=== PATIENT | female | born 1985 | race Caucasian/White ===

== ENCOUNTER 2020-02-06 16:25 | Outpatient (CLI) | payer SELFPAY ==
--- NOTE | 2020-02-06 | MR_ITS ---
WS: [id number] MRI LEFT KNEE HISTORY: LEFT KNEE PAIN COMPARISON: None available. Anterior cruciate ligament: Abnormal signal in the proximal ACL. There is edema throughout the ligame nt and the ligament appears small. Some of the fibers are still intact but suspect there is probably at least a partial tear of the proximal ligament. Posterior cruciate ligament: PCL is been pulled tight. No significant subluxation identified but the ligament is pulled tight but intact. Medial collateral ligament: Mild MCL sprain. No full-thickness tear. Posterior lateral corner structures: Small amount of edema in the posterior lateral corner structures . No tears. Medial menisci: Intact. Normal signal, size and shape. Lateral meniscus: Intact. Normal signal, size and shape. Extensor mechanism: Distal quadriceps tendon is intact. There is high-grade signal throughout the pro ximal patellar tendon extending over length of 2.1 cm. No retraction of the tendon or full-thickness tear. The anterior fibers of the tendon are still intact. Fluid and soft tissue: Large joint effusion surrounding the knee. There is a large amount of soft tis kishan edema around the knee greatest involving the femoral condyles and extending along the distal semi membranosus tendon and muscle and around the proximal fibula. Small amount of fluid in Yen's cyst. Osseous and articular structures: Patellofemoral compartment: Normal. Medial compartment: No significant narrowing of the joint space. Cartilage is intact. There is extens jarod marrow edema in the medial femoral condyle. Marrow edema is in the medial most aspect of the cond yle no definite fracture is identified but I'm suspicious there is probably a trabecular injury and m icrofractures in the posterior aspect of the condyle. There is additional extensive marrow edema grace g the tibial plateau. Marrow edema extends from the tibial plateau towards the metaphysis and crosses the midline. Edema is in the anterior most aspect of the tibial plateau. Microfractures and trabecul ar injury. Lateral compartment: Large amount of marrow edema in the fibular head. There is a nondisplaced fractu re extending obliquely through the posterior lateral fibular head. No displacement. Marrow edema pres ent in the lateral tibial plateau. Increased fluid signal throughout the distal semimembranosus tendon. No full-thickness tear. Increase d signal and fluid without the distal biceps femoris tendon and muscle. MR/MR knee LT wo con* [id number] IMPRESSION: 1. Large joint effusion and a large amount of soft tissue edema surrounding th e knee. 2. Significant marrow injury involving the medial femoral condyle, medial tibi al plateau with extension across the midline to the lateral tibial plateau and the fibular head. Nondisplaced fracture in the fibular head and highly suspicio us for minimally displaced fractures and trabecular injury involving the medial posterior femoral condyle and medial tibial plateau. 3. Patellar tendon proximal partial tear. 4. Partial high-grade tear involving the proximal ACL. 5. Small Yen's cyst. 6. Mild MCL sprain. 7. Mild sprain semimembranosus and partial tear distal biceps femoris tendon.
== END 2020-02-06 16:26 | disposition home or self-care (01) ==
LOC: RADSHAW 16:31
PROVIDERS: Family Provider Family Medicine; PCP Family Medicine; Visit Provider Nurse Practitioner Family
DX: M25.562 Pain in left knee (principal); M25.462 Effusion, left knee; R60.9 Edema, unspecified; S89.92XA Unspecified injury of left lower leg, initial encounter; S83.512A Sprain of anterior cruciate ligament of left knee, initial encounter; X58.XXXA Exposure to other specified factors, initial encounter; M71.22 Synovial cyst of popliteal space [Baker], left knee
CPT/HCPCS: 73721

== ENCOUNTER → 2020-08-25 14:36 | Outpatient (BNVA) | payer OTHER, SELFPAY | PROVIDERS: Family Provider Family Medicine; PCP Family Medicine; Visit Provider Emergency Medicine | DX: Z20.828 Contact with and (suspected) exposure to other viral communicable diseases (principal) | CPT/HCPCS: 87400; 87635 ==

== ENCOUNTER → 2020-10-10 13:55 | Outpatient (BNVA) | payer OTHER, SELFPAY | PROVIDERS: Family Provider Family Medicine; PCP Family Medicine; Visit Provider Nurse Practitioner Family | DX: Z20.828 Contact with and (suspected) exposure to other viral communicable diseases (principal) | CPT/HCPCS: 87635 ==

== ENCOUNTER → 2021-02-21 11:42 | Outpatient (BNVA) | payer SELFPAY | PROVIDERS: Family Provider Family Medicine; PCP Family Medicine; Visit Provider Nurse Practitioner | DX: S93.401A Sprain of unspecified ligament of right ankle, initial encounter (principal); X58.XXXA Exposure to other specified factors, initial encounter; Z68.28 Body mass index [BMI] 28.0-28.9, adult | CPT/HCPCS: 73610 ==

== ENCOUNTER → 2021-04-26 18:03 | Outpatient (BNVA) | payer OTHER, SELFPAY | PROVIDERS: Family Provider Family Medicine; PCP Family Medicine; Visit Provider Registered Nurse Neonatal Intensive Care | DX: Z20.822 Contact with and (suspected) exposure to COVID-19 (principal) | CPT/HCPCS: 87635 ==

== ENCOUNTER → 2021-08-30 10:50 | Outpatient (BNVA) | payer OTHER, SELFPAY | PROVIDERS: Family Provider Family Medicine; PCP Family Medicine; Visit Provider Registered Nurse Neonatal Intensive Care | DX: Z20.822 Contact with and (suspected) exposure to COVID-19 (principal) | CPT/HCPCS: 87635 ==

== ENCOUNTER → 2023-02-13 13:45 | Outpatient (BNVA) | payer SELFPAY | PROVIDERS: Family Provider Family Medicine; Visit Provider Nurse Practitioner Family | DX: M79.89 Other specified soft tissue disorders (principal) | CPT/HCPCS: 73590 ==

== ENCOUNTER → 2023-06-03 10:59 | Outpatient (BNVA) | payer SELFPAY | PROVIDERS: Family Provider Family Medicine; Visit Provider Nurse Practitioner | DX: N92.6 Irregular menstruation, unspecified (principal); Z32.01 Encounter for pregnancy test, result positive | CPT/HCPCS: 81025 ==

== ENCOUNTER 2023-06-10 10:07 | Emergency (ER) | payer MEDICAID, SELFPAY ==
[2023-06-10 10:17] VITALS: BP 120/74; PULSE 92; RESP 15; TEMP 37.2; O2SAT 98
--- NOTE | 2023-06-10 10:43 | W.ED.FEMALGU ---
HPI - Female Genitourinary General: Chief complaint: Vaginal Bleeding Stated complaint: 6-7 weeks preg lower right side pain Time Seen by Provider: 06/10/23 10:37 Source: patient Mode of arrival: ambulatory Limitations: no limitations History of Present Illness: Patient is a 38-year-old female presents to ED today stating she is approximately 6 to 7 weeks and is having some minor vaginal bleeding and pelvic cramping mainly on the right side. Patient states she had a home test about a week ago and was seen at a walk-in clinic on 06/03 where was confirmed. She has never had an ultrasound. LMP was approximately April 26 placing her at exactly 7 weeks. She states she is not passing clots or tissue. Bleeding mainly seen while wiping. She denies new sexual partners, vaginal discharge, vaginal odor, or concern for STDs. MD elicited complaint: pelvic pain, possible miscarriage and other () Onset (ago): day(s) (bleeding yesterday; reports cramping has been present intermittently for weeks) Severity: mild Consistency: intermittent Vaginal discharge: none Vaginal bleeding: scant and bright red Exacerbating factors: none Relieving factors: none Associated symptoms: Reports no associated symptoms; Deny abdominal pain, headache(s), nausea or vaginal discharge Treatment prior to arrival: none Sexual activity: Yes Patient : Yes Date of Last Menstrual Period: 04/26/23 Related Data: : 3 Para: 2 Total number of abortions (spontaneous and elective): 0 Review of Systems Const: Denies: fever(s), chills, body aches, fatigue or malaise Card: Denies: chest pain Resp: Denies: dyspnea GI: Denies: abdominal pain, nausea, vomiting or diarrhea : Reports: vaginal bleeding and pelvic pain; Denies: flank pain, difficulty voiding, dysuria, urinary frequency, urinary urgency, urinary hesitancy, vaginal odor or vaginal discharge Musc: Denies: neck pain, back pain, extremity pain or joint pain Skin/Breast: Denies: rash Neuro: Denies: headache(s) or dizziness PFSH ED PFSH: Medical History Premenstrual dysphoric disorder Premenstrual symptom Psychiatric care Surgical History H/O wisdom tooth extraction Family History Grandfather CAD (coronary artery disease) Paternal Hypertension Paternal Grandfather Hypertension Maternal Grandmother Hypertension Paternal Father Hypertension Hyperlipidemia Stroke Diabetes Family/Other Hyperlipidemia Paternal aunt Mother Family history of thyroid problem Social History Smoking and tobacco status: current every day smoker e-cigarettes E-Cigarette Details: vaporizer device and with nicotine E-cig/vape details: cartridge/week Quit status (tobacco): has tried quititng Number of times tried to quit tobacco: 6 Second hand smoke exposure: No Smoking risk assessment/counseling performed?: No Alcohol intake: current Alcohol intake frequency: holidays/special occasions only Alcohol type: other Desire information about alcohol rehabilitation?: No Counseling given: Yes Other alcohol counseling details: Alcohol & medications don't mix. Substance/Drug Use: current Substance/Drug use frequency: few times a week Desire information about substance/drug rehabilitation?: No Counseling given: No Female Reproductive History: Date of last menstrual period: 04/26/23 : 3 Spontaneous abortions: No Physical Exam Const: COMMON NORMALS: no acute distress, average body habitus, patient oriented x3, no limitations, alert and well nourished ORIENTATION/CONSCIOUSNESS: Yes awake, Yes oriented to person, Yes oriented to place and Yes oriented to time Resp: COMMON NORMALS: normal respiratory effort and clear to auscultation bilaterally AUSCULTATION: clear to auscultation bilaterally Cardio: COMMON NORMALS: regular rate and regular rhythm RATE: regular rate RHYTHM: regular rhythm GI: COMMON NORMALS: Normal to inspection, nondistended, normoactive bowel sounds present, Soft to palpation, No hepatosplenomegaly present and no masses INSPECTION: Yes normal to inspection AUSCULTATION: Yes normoactive bowel sounds PALPATION: Yes Soft to palpation, Yes Tenderness to palpation present (GI) (mild tenderness R to middle pelvis), No Guarding due to palpation present (GI), No Rigid due to palpation and Yes No hepatosplenomegaly present : COMMON NORMALS: Yes no CVA tenderness BLADDER/KIDNEY EXAM: Yes no CVA tenderness Back/Pelvis: COMMON NORMALS: no CVA tenderness Extremity: COMMON NORMALS: normal to inspection GENERAL: Yes normal exam except as noted Neuro: PHOEBE COMA SCALE: document GCS findings [place] coma scale eye opening: Spontaneous Phoebe coma scale verbal response: Orientated [place] coma scale motor response: Obey commands [place] coma scale total score: 15 COMMON NORMALS: patient oriented x3, CN's II-XII intact bilaterally, moves all extremities, no focal motor deficits, no sensory deficits noted and gait normal SENSORIUM/ORIENTATION: Yes alert, Yes oriented to person, Yes oriented to place and Yes oriented to time Skin: COMMON NORMALS: no rashes or lesions noted GENERAL SKIN EXAM: no rashes or lesions noted Course Vital Signs: Vital signs: Vital Signs Temperature 99.0 F 06/10/23 10:17 Pulse Rate 99 06/10/23 12:20 Respiratory Rate 15 06/10/23 10:17 Blood Pressure 123/78 06/10/23 11:21 Pulse Oximetry 96 06/10/23 12:20 Oxygen Delivery Me thod Room Air 06/10/23 12:20 MDM - Female Medical Decision Making On ultrasound patient does have an intrauterine with gestational sac, pole, and yolk sac. Cardiac activity most likely secondary to early as they dated her at [id number]. Hemorrhagic right ovarian cyst present most likely causing her discomfort. Discussed ultrasound findings and cannot guarantee viability of fetus this time without heartbeat. Recommend she contact her OB provider Dr. Parra (currently has an appointment scheduled for 06/25) to see if/when they would like to repeat hcg and/or ultrasound. Strict return to ED precautions given. Lab Data 06/10/23 11:04 06/10/23 11:04 Laboratory Results WBC 8.90 10^3/uL (3.29-11.43) 06/10/23 11:04 RBC 4.06 10^6/uL (3.85-5.65) 06/10/23 11:04 Hgb 13.70 g/dL (11.27-16.99) 06/10/23 11:04 Hct 41.1 % (36-47) 06/10/23 11:04 MCV 101.2 fl (85-98) H 06/10/23 11:04 MCH 33.7 pg (27-33) H 06/10/23 11:04 MCHC 33.3 g/dL (30-55) 06/10/23 11:04 RDW 13.9 % (12.1-15.1) 06/10/23 11:04 Plt Count 333 10^3/cmm (157-399) 06/10/23 11:04 MPV 9.2 fL (7.4-10.4) 06/10/23 11:04 Neut % (Auto) 67.9 % 06/10/23 11:04 Lymph % (Auto) 22.8 % 06/10/23 11:04 [place] % (Auto) 7.3 % 06/10/23 11:04 Eos % (Auto) 1.0 % 06/10/23 11:04 Baso % (Auto) 0.7 % 06/10/23 11:04 Neut # (Auto) 6.04 10^3/uL (1.8-7.7) 06/10/23 11:04 Lymph # (Auto) 2.0 10^3/uL (0.8-4.8) 06/10/23 11:04 [place] # (Auto) 0.7 10^3/uL (0.2-0.9) 06/10/23 11:04 Eos # (Auto) 0.1 10^3/uL (0.0-0.8) 06/10/23 11:04 Baso # (Auto) 0.1 10^3/uL (0.0-0.1) 06/10/23 11:04 Nucleated RBC % (auto) 0 % 06/10/23 11:04 Nucleated RBCs # 0.0 /100WBC 06/10/23 11:04 Sodium 137 mmol/L (136-145) 06/10/23 11:04 Potassium 3.6 mmol/L (3.5-5.1) 06/10/23 11:04 Chloride 103 mmol/L (98-107) 06/10/23 11:04 Carbon Dioxide 22 mmol/L (22-29) 06/10/23 11:04 Anion Gap 15.6 (5-19) 06/10/23 11:04 BUN 11 mg/dL (6-20) 06/10/23 11:04 Creatinine 0.7 mg/dL (0.5-0.9) 06/10/23 11:04 GFR Calculation 93.6 mL/min (90-130) 06/10/23 11:04 Glucose 100 mg/dL (65-115) 06/10/23 11:04 Calculated Osmolality 283 mOsm/kg (285-295) L 06/10/23 11:04 Calcium 9.4 mg/dL (8.5-10.5) 06/10/23 11:04 Total Bilirubin 0.2 mg/dL (0.15-1.2) 06/10/23 11:04 AST 15 U/L (0-32) 06/10/23 11:04 ALT 12 U/L (0-33) 06/10/23 11:04 Alkaline Phosphatase 48 U/L (35-105) 06/10/23 11:04 Total Protein 7.0 g/dL (6.6-8.7) 06/10/23 11:04 Albumin 4.5 g/dL (3.5-5.2) 06/10/23 11:04 Globulin 2.5 g/dL (1.3-4.6) 06/10/23 11:04 Ser , Semi-Qnt 5162.00 mIU/mL 06/10/23 11:04 Discharge Plan Discharge Patient Disposition: Home Clinical Impression: Spotting in early Condition: Stable Prescriptions: No Action No Known Home Medications Discharge Orders: Discharge ED (Routine); Ordered 06/10/23 Ordered By: Sri Cadet Referrals: Jun Cheng DO [Family Provider] - Patient Instructions: Activity Restrictions/Additional Instructions: As we discussed your hCG level today is roughly 5100 corresponds to your last menstrual period dates. Ultrasound today showing an intrauterine gestational sac with pole and yolk sac however cardiac activity could not be assessed most likely due to very early . They did see a hemorrhagic right ovarian cyst likely responsible for your discomfort. As we discussed you need to reach out to your OB provider Dr. Parra or [facility] office for re-evaluation to see if/when they would like to repeat hcg or ultrasound. You need to return to the emergency department for worsening pelvic pain, bleeding, headedness/dizziness/passing out episodes, or any other concerns you may have. Coding Level of Care Code ED Geotechnical Department Manager for Bere Baldwin
[2023-06-10 11:16] LABS: Basophils # 0.1 10^3/uL (0.0-0.1); Basophils % 0.7 %; Eosinophils # 0.1 10^3/uL (0.0-0.8); Hematocrit 41.1 % (36-47); Lymphocytes % 22.8 %; Mean Corpuscular HGB Conc 33.3 g/dL (30-55); Mean Corpuscular Hemoglobin 33.7 pg (27-33); Mean Corpuscular Volume 101.2 fl (85-98); Mean Platelet Volume 9.2 fL (7.4-10.4); Monocytes # 0.7 10^3/uL (0.2-0.9); Monocytes % 7.3 %; Neutrophils # 6.04 10^3/uL (1.8-7.7); Neutrophils % 67.9 %; Nucleated Red Blood Cells % 0 %; Platelet Count 333 10^3/cmm (157-399); Red Blood Count 4.06 10^6/uL (3.85-5.65); Red Cell Distribution Width 13.9 % (12.1-15.1)
[2023-06-10 11:21] VITALS: BP 123/78; PULSE 81; O2SAT 98
--- NOTE | 2023-06-10 11:51 | US_ITS ---
WS: [id number] ULTRASOUND EARLY TECHNIQUE: Transabdominal sonography of the pelvis was performed. Followed by transvaginal sonography to better evaluate the uterus and ovaries. G5, P2 CLINICAL INFORMATION: 7 wks ; R sided pain LMP: 03/29/2023 Beta hCG: Unknown. COMPARISON: None. FINDINGS: Closed cervix measures 3.1 cm UTERUS AND GESTATIONAL SAC Intrauterine gestations: Intrauterine gestational sac with pole and yolk sac. Estimated gestati onal age 5 weeks 5 days. Too early for cardiac activity assessment. Recommend short interval follow-u p. Estimated gestational age: 5w5d Yolk sac: 0.2 cm. [place] rump length (CRL): 0.2 cm. Subchorionic hemorrhage: None. OVARIES Right ovary: Corpus luteum cyst or hemorrhagic cyst RIGHT ovary measuring 9.1 x 7.3 x 11 mm Left ovary: Normal. FREE FLUID Trace free fluid in the cul-de-sac. IMPRESSION: 1. Gestational sac with pole and yolk sac. Cardiac activity cannot be assessed due to very ear ly . Recommend short interval follow-up. 2. Estimated gestational age; 5w5d 3. Right ovary: Corpus luteum cyst or hemorrhagic cyst RIGHT ovary measuring 9.1 x 7.3 x 11 mm 4. Small amount of free fluid in the cul-de-sac. 5. No other suspicious findings.
[2023-06-10 11:53] LABS: Alanine Aminotransferase 12 U/L (0-33); Albumin Level 4.5 g/dL (3.5-5.2); Alkaline Phosphatase 48 U/L (35-105); Anion Gap 15.6 (5-19); Aspartate Amino Transferase 15 U/L (0-32); Blood Urea Nitrogen 11 mg/dL (6-20); Calcium 9.4 mg/dL (8.5-10.5); Carbon Dioxide 22 mmol/L (22-29); Chloride 103 mmol/L (98-107); Globulin 2.5 g/dL (1.3-4.6); Glomerular Filtration Rate 93.6 mL/min (90-130); Glucose 100 mg/dL (65-115); Osmolality Calculated 283 mOsm/kg (285-295); Potassium 3.6 mmol/L (3.5-5.1); Sodium 137 mmol/L (136-145); Total Bilirubin 0.2 mg/dL (0.15-1.2)
[2023-06-10 12:20] VITALS: PULSE 99; O2SAT 96
[2023-06-10 14:26] VITALS: BP 123/81; PULSE 72; O2SAT 99
== END 2023-06-10 14:30 | disposition home or self-care (01) ==
PROVIDERS: Emergency Provider Physician Assistant; Family Provider Family Medicine
DX: O26.851 Spotting complicating pregnancy, first trimester (principal); Z3A.01 Less than 8 weeks gestation of pregnancy; O99.331 Smoking (tobacco) complicating pregnancy, first trimester; F17.290 Nicotine dependence, other tobacco product, uncomplicated
CPT/HCPCS: 36415; 76801; 76817; 80053; 84702; 85025; 99284

== ENCOUNTER 2024-07-20 13:06 | Emergency (ER) | payer MEDICAID, SELFPAY ==
--- NOTE | 2024-07-20 13:09 | ECG_ITS ---
[facility] Test Date: 2024-07-20 Pat Name: Raissa Vale Department: Room: Gender: Female Database Designer: : 1985 Requested By: Conner Abbasi Order Number: [id number] Razia MD: Johanna Marsh M.D. Measurements Intervals [place] Rate: 80 P: 60 ID: [id number] QRS: 55 QRSD: 84 T: 62 QT: 362 QTc: 418 Interpretive Statements SINUS RHYTHM WITH SHORT ID INTERVAL Compared to ECG 04/02/2016 09:43:32 Short ID interval now present Sinus arrhythmia no longer present Electronically Signed On 07-20-2024 16:42:59 CDT by Johanna Marsh M.D. [email or web address]
--- NOTE | 2024-07-20 13:09 | XRR_ITS ---
PROCEDURE INFORMATION: Exam: XR Chest Exam date and time: 07/20/2024 1:51 PM Age: 39 years old Clinical indication: Pain; Angina pectoris; Additional info: Cp TECHNIQUE: Imaging protocol: Radiologic exam of the chest. Views: 1 view. COMPARISON: No relevant prior studies available. FINDINGS: Lungs: No consolidation. Pleural spaces: No pleural effusion. No pneumothorax. Heart/Mediastinum: No cardiomegaly. Bones/joints: No acute findings. XR/XR chest 1V portable [id number] IMPRESSION: No acute chest findings.
[2024-07-20 13:13] VITALS: BP 160/99; PULSE 89; RESP 16; TEMP 36.9; O2SAT 100; BMI 25.8
[2024-07-20 13:54] LABS: Basophils % 0.4 %; Eosinophils # 0.1 10^3/uL (0.0-0.8); Eosinophils % 0.8 %; Hematocrit 40.9 % (36-47); Lymphocytes # 2.8 10^3/uL (0.8-4.8); Mean Corpuscular HGB Conc 33.7 g/dL (30-55); Mean Corpuscular Hemoglobin 33.8 pg (27-33); Mean Corpuscular Volume 100.2 fl (85-98); Mean Platelet Volume 9.3 fL (7.4-10.4); Monocytes # 0.8 10^3/uL (0.2-0.9); Monocytes % 7.8 %; Neutrophils # 6.22 10^3/uL (1.8-7.7); Neutrophils % 62.7 %; Nucleated Red Blood Cells % 0 %; Platelet Count 305 10^3/cmm (157-399); Red Blood Count 4.08 10^6/uL (3.85-5.65); Red Cell Distribution Width 13.5 % (12.1-15.1); White Blood Count 9.92 10^3/uL (3.29-11.43)
[2024-07-20 13:59] VITALS: BP 149/73; PULSE 82; RESP 16; O2SAT 100
[2024-07-20 14:14] LABS: Alanine Aminotransferase 17 U/L (0-33); Albumin Level 4.7 g/dL (3.5-5.2); Alkaline Phosphatase 46 U/L (35-105); Anion Gap 17.2 (5-19); Aspartate Amino Transferase 23 U/L (0-32); Blood Urea Nitrogen 10 mg/dL (6-20); Calcium 8.9 mg/dL (8.5-10.5); Carbon Dioxide 22 mmol/L (22-29); Chloride 103 mmol/L (98-107); Creatinine Clr Calc Pharmacy 110.0549; Globulin 2.1 g/dL (1.3-4.6); Glomerular Filtration Rate 93.2 mL/min (90-130); Glucose 94 mg/dL (65-115); Lipase 20 U/L (13-60); Osmolality Calculated 285 mOsm/kg (285-295); Potassium 4.2 mmol/L (3.5-5.1); Sodium 138 mmol/L (136-145); Total Bilirubin 0.4 mg/dL (0.15-1.2); Total Protein 6.8 g/dL (6.6-8.7)
--- NOTE | 2024-07-20 14:15 | ED_ITS ---
HPI - Chest Pain 2 General: Chief Complaint: Chest Pain Stated Complaint: CP/Irregular HB Time Seen by Provider: 07/20/24 13:44 Source: patient Mode of arrival: ambulatory Limitations: no limitations History of Present Illness: 39-year-old female states over the last week she has been having some palpitations states she feels like her hearts been racing at times and also having chest pain states it has been a sharp pain she denies any fevers denies any cough denies any shortness of breath she denies any worsening improving factors. Associated symptoms: Reports palpitations; Deny abdominal pain, dyspnea, fever(s), nausea or vomiting Related Data Home Medications Medication Instructions Recorded Confirmed No Known Home Medications 06/10/23 07/20/24 Allergies Allergy/AdvReac Type Severity Reaction Status Date / Time No Known Allergies Allergy Verified 06/10/23 10:20 Review of Systems 2 Const: Denies: fever(s), chills, body aches or change in appetite ENMT: Denies: throat pain or dental pain Card: Reports: chest pain and palpitations Resp: Denies: dyspnea GI: Denies: abdominal pain, nausea, vomiting or diarrhea : Denies: dysuria Musc: Denies: neck pain or back pain Skin/Breast: Denies: rash Neuro: Denies: headache(s) PFSH ED 2 PFSH: Medical History Psychiatric care Premenstrual dysphoric disorder Premenstrual symptom Surgical History H/O wisdom tooth extraction Family History Grandfather CAD (coronary artery disease) Paternal Hypertension Paternal Grandfather Hypertension Maternal Grandmother Hypertension Paternal Father Hypertension Hyperlipidemia Stroke Diabetes Family/Other Hyperlipidemia Paternal aunt Mother Family history of thyroid problem Social History Smoking and tobacco/nicotine status: current every day tobacco/nicotine user e- cigarettes E-Cigarette Details: vaporizer device and with nicotine E-cig/vape details: cartridge/week Quit status (tobacco/nicotine): has tried quititng Number of times tried to quit tobacco: 6 Second hand smoke exposure: No Alcohol intake: current Alcohol intake frequency: holidays/special occasions only Alcohol type: other Substance/Drug Use: current Substance/Drug use frequency: few times a week Female Reproductive History: Spontaneous abortions: No Physical Exam 2 Const: COMMON NORMALS: no acute distress, patient oriented x3 and healthy appearing HENMT: COMMON NORMALS: normocephalic and atraumatic HEAD & SCALP: n ormocephalic and atraumatic Neck/C-Spine: COMMON NORMALS: full ROM and supple Chest: COMMONS NORMALS: normal inspection of the chest Resp: COMMON NORMALS: normal respiratory effort, No retractions, No use of accessory muscles and clear to auscultation bilaterally AUSCULTATION: clear to auscultation bilaterally Cardio: COMMON NORMALS: regular rate, regular rhythm and No murmurs present (Cardio) RATE: regular rate RHYTHM: regular rhythm Extremity: COMMON NORMALS: normal to inspection and full ROM Neuro: COMMON NORMALS: patient oriented x3, moves all extremities and no focal motor deficits Psych: COMMON NORMALS: mental status grossly normal, Normal thought process present and cooperative THOUGHT PROCESS: Normal thought process present Skin: COMMON NORMALS: no rashes or lesions noted and no wounds GENERAL SKIN EXAM: no rashes or lesions noted Course 2 Vital Signs: Vital signs: Vital Signs Temperature 98.4 F 07/20/24 13:13 Pulse Rate 82 07/20/24 13:59 Respiratory Rate 16 07/20/24 13:59 Blood Pressure 149/73 07/20/24 13:59 Pulse Oximetry 100 07/20/24 13:59 Oxygen Delivery Me thod Room Air 07/20/24 13:59 MDM - Chest Pain Medical Decision Making Patient presents here with palpitations and chest pains that are atypical in nature EKG x-ray cardiac enzymes here are all normal patient stable for discharge follow-up PCP return if worsening. Medical Records I reviewed the patient's medical records. Lab Data I reviewed the patient's lab results. 07/20/24 13:39 07/20/24 13:39 Radiology Impressions Chest X-Ray 07/20/24 13:09 IMPRESSION: No acute chest findings. Laboratory Results WBC 9.92 10^3/uL (3.29-11.43) 07/20/24 13:39 RBC 4.08 10^6/uL (3.85-5.65) 07/20/24 13:39 Hgb 13.80 g/dL (11.27-16.99) 07/20/24 13:39 Hct 40.9 % (36-47) 07/20/24 13:39 MCV 100.2 fl (85-98) H 07/20/24 13:39 MCH 33.8 pg (27-33) H 07/20/24 13:39 MCHC 33.7 g/dL (30-55) 07/20/24 13:39 RDW 13.5 % (12.1-15.1) 07/20/24 13:39 Plt Count 305 10^3/cmm (157-399) 07/20/24 13:39 MPV 9.3 fL (7.4-10.4) 07/20/24 13:39 Neut % (Auto) 62.7 % 07/20/24 13:39 Lymph % (Auto) 28.0 % 07/20/24 13:39 [place] % (Auto) 7.8 % 07/20/24 13:39 Eos % (Auto) 0.8 % 07/20/24 13:39 Baso % (Auto) 0.4 % 07/20/24 13:39 Neut # (Auto) 6.22 10^3/uL (1.8-7.7) 07/20/24 13:39 Lymph # (Auto) 2.8 10^3/uL (0.8-4.8) 07/20/24 13:39 [place] # (Auto) 0.8 10^3/uL (0.2-0.9) 07/20/24 13:39 Eos # (Auto) 0.1 10^3/uL (0.0-0.8) 07/20/24 13:39 Baso # (Auto) 0.0 10^3/uL (0.0-0.1) 07/20/24 13:39 Nucleated RBC % (auto) 0 % 07/20/24 13:39 Nucleated RBCs # 0.0 /100WBC 07/20/24 13:39 D-Dimer 0.31 ug/mLFEU (0-0.59) 07/20/24 13:39 Sodium 138 mmol/L (136-145) 07/20/24 13:39 Potassium 4.2 mmol/L (3.5-5.1) 07/20/24 13:39 Chloride 103 mmol/L (98-107) 07/20/24 13:39 Carbon Dioxide 22 mmol/L (22-29) 07/20/24 13:39 Anion Gap 17.2 (5-19) 07/20/24 13:39 BUN 10 mg/dL (6-20) 07/20/24 13:39 Creatinine 0.7 mg/dL (0.5-0.9) 07/20/24 13:39 GFR Calculation 93.2 mL/min (90-130) 07/20/24 13:39 Glucose 94 mg/dL (65-115) 07/20/24 13:39 Calculated Osmolality 285 mOsm/kg (285-295) 07/20/24 13:39 Calcium 8.9 mg/dL (8.5-10.5) 07/20/24 13:39 Total Bilirubin 0.4 mg/dL (0.15-1.2) 07/20/24 13:39 AST 23 U/L (0-32) 07/20/24 13:39 ALT 17 U/L (0-33) 07/20/24 13:39 Alkaline Phosphatase 46 U/L (35-105) 07/20/24 13:39 Troponin T Baseline < 6 ng/L (0-10) 07/20/24 13:39 Total Protein 6.8 g/dL (6.6-8.7) 07/20/24 13:39 Albumin 4.7 g/dL (3.5-5.2) 07/20/24 13:39 Globulin 2.1 g/dL (1.3-4.6) 07/20/24 13:39 Lipase 20 U/L (13-60) 07/20/24 13:39 All radiology interpretation(s) finalized by discharge Discharge Plan Discharge Patient Disposition: Home Clinical Impression: Atypical chest pain, Heart palpitations Condition: Stable Prescriptions: No Action No Known Home Medications Discharge Orders: Discharge ED (Routine); Ordered 07/20/24 Ordered By: Conner Abbasi Discharge Diet: Advance as tolerated Discharge Activity: Resume usual activity Patient Instructions: Chest Pain (ED), Heart Palpitations (ED) Coding Level of Care Code ED Upstream Biomanufacturing Technician for Chg Nicolasa
[2024-07-20 14:19] LABS: Troponin(5th) Baseline < 6 ng/L (0-10)
[2024-07-20 14:34] LABS: D Dimer 0.31 ug/mLFEU (0-0.59)
[2024-07-20 15:06] VITALS: BP 113/96; PULSE 78; RESP 16; O2SAT 100
== END 2024-07-20 15:05 | disposition home or self-care (01) ==
PROVIDERS: Emergency Provider Emergency Medicine
DX: R07.89 Other chest pain (principal); R00.2 Palpitations; F17.290 Nicotine dependence, other tobacco product, uncomplicated
CPT/HCPCS: 36415; 71045; 80053; 83690; 84484; 85025; 85378; 93005; 99285

== ENCOUNTER 2024-09-13 09:37 | Emergency (ER) | payer SELFPAY ==
[2024-09-13 09:54] VITALS: BP 152/95; PULSE 83; RESP 18; TEMP 36.7; O2SAT 100; BMI 27.4
--- NOTE | 2024-09-13 09:55 | ECG_ITS ---
[facility] Date: 2024-09-13 Pat Name: Raissa Vale Department: Room: Gender: Female Diabetes Clinical Manager: : 1985 Requested By: Papo Chamberlain Order Number: [id number] Razia MD: Johanna Marsh M.D. Measurements Intervals [place] Rate: 73 P: 58 ID: [id number] QRS: 54 QRSD: 86 T: 47 QT: 377 QTc: 416 Interpretive Statements SINUS RHYTHM WITH SHORT ID INTERVAL Compared to ECG 07/20/2024 13:09:00 No significant changes Electronically Signed On 09-14-2024 01:00:10 AIR MOVING TECHNICIAN by Johanna Marsh M.D. [id number]
[2024-09-13 11:20] LABS: Basophils % 0.3 %; Eosinophils # 0.1 10^3/uL (0.0-0.8); Eosinophils % 0.7 %; Hematocrit 39.1 % (36-47); Lymphocytes # 2.5 10^3/uL (0.8-4.8); Lymphocytes % 21.3 %; Mean Corpuscular HGB Conc 33.5 g/dL (30-55); Mean Corpuscular Hemoglobin 33.2 pg (27-33); Mean Corpuscular Volume 99.2 fl (85-98); Mean Platelet Volume 9.1 fL (7.4-10.4); Monocytes # 0.8 10^3/uL (0.2-0.9); Monocytes % 6.7 %; Neutrophils # 8.12 10^3/uL (1.8-7.7); Neutrophils % 70.4 %; Nucleated Red Blood Cells % 0 %; Platelet Count 354 10^3/cmm (157-399); Red Blood Count 3.94 10^6/uL (3.85-5.65); Red Cell Distribution Width 13.2 % (12.1-15.1); White Blood Count 11.53 10^3/uL (3.29-11.43)
[2024-09-13 11:41] LABS: Alanine Aminotransferase 10 U/L (0-33); Albumin Level 4.4 g/dL (3.5-5.2); Alkaline Phosphatase 59 U/L (35-105); Aspartate Amino Transferase 15 U/L (0-32); Blood Urea Nitrogen 7 mg/dL (6-20); Calcium 9.6 mg/dL (8.5-10.5); Carbon Dioxide 24 mmol/L (22-29); Chloride 99 mmol/L (98-107); Creatinine Clr Calc Pharmacy 198.0047; Globulin 2.9 g/dL (1.3-4.6); Glomerular Filtration Rate 177.7 mL/min (90-130); Glucose 87 mg/dL (65-115); Osmolality Calculated 275 mOsm/kg (285-295); Sodium 134 mmol/L (136-145); Total Bilirubin 0.3 mg/dL (0.15-1.2); Total Protein 7.3 g/dL (6.6-8.7)
[2024-09-13 12:11] VITALS: BP 120/80; PULSE 90; RESP 18; O2SAT 100
--- NOTE | 2024-09-13 12:12 | ED_ITS ---
HPI - Dizziness 2 General: Chief Complaint: Syncope Stated Complaint: passed out (11wks preg) Time Seen by Provider: 09/13/24 09:57 Source: patient Mode of arrival: ambulatory Limitations: no limitations History of Present Illness: HPI Narrative: Patient is a 39-year-old female presents to ED today with a complaint of dizziness/lightheadedness. She states symptoms have been going on for about a week or so. She states she has been having intermittent palpitations for several months. She states she is scheduled to have a heart monitor next week. She does not feel like the palpitations correspond to the dizziness. Patient states when she awakes in the morning she does not have dizziness/lightheadedness but will start noticing symptoms around noon. She does not feel like dizziness is stimulated by abrupt changes in position. She denies drug or alcohol use apart from marijuana use-continuing to use during . She does state she took a klonopin the other day for her heart palpitations. Despite her dizziness, she has continued to ambulate without difficulty or assistance. She is not having any ear pain, tinnitus, or hearing loss. No recent URI-like symptoms. She states she is drinking adequate amounts of fluid. She is taking vitamins as she is currently . States she is around 12 weeks . has been confirmed with OB and she is currently seen OB in [place]. She is not having any vaginal bleeding or pelvic pain. MD elicited complaint: dizziness Onset (ago): week(s) Timing: episodic Severity: mild History of similar symptoms: No Associated symptoms: Reports no associated symptoms, palpitations and syncope; Denies chest pain, chills, headache(s), nausea or vomiting Associated neuro symptoms: Reports no associated symptoms; Deny numbness in extremities Stroke scale total: 0 Related Data Home Medications Medication Instructions Recorded Confirmed vits no.130-ferrous fum 1 tab PO DAILY 09/12/24 09/13/24 27 mg iron-folic acid 800 mcg tablet ( Vitamin) ferrous sulfate 325 mg (65 mg 325 mg PO DAILY 09/13/24 09/13/24 iron) tablet Allergies Allergy/AdvReac Type Severity Reaction Status Date / Time No Known Allergies Allergy Verified 09/12/24 18:04 Review of Systems 2 Const: Reports: fatigue; Denies: fever(s), chills or body aches Eyes: Denies: change in vision, blurry vision, photophobia, eye discomfort, eye discharge, floaters or seeing flashes Card: Reports: palpitations and syncope; Denies: chest pain, irregular heart rhythm, edema, swelling of feet/ankles, pre- syncope, dyspnea on exertion, orthopnea, leg pain with exertion or acrocyanosis Resp: Denies: dyspnea GI: Denies: abdominal pain, nausea, vomiting or diarrhea : Denies: flank pain or dysuria Musc: Denies: neck pain, back pain, extremity pain, joint pain or joint swelling Skin/Breast: Denies: rash Neuro: Reports: dizziness; Denies: headache(s), numbness in extremities, weakness in extremities or sensory changes PFSH ED 2 PFSH: Medical History Psychiatric care Premenstrual dysphoric disorder Premenstrual symptom Surgical History H/O wisdom tooth extraction Family History Grandfather CAD (coronary artery disease) Paternal Hypertension Paternal Grandfather Hypertension Maternal Grandmother Hypertension Paternal Father Hypertension Hyperlipidemia Stroke Diabetes Family/Other Hyperlipidemia Paternal aunt Mother Family history of thyroid problem Social History Smoking and tobacco/nicotine status: current every day tobacco/nicotine user e- cigarettes E-Cigarette Details: vaporizer device and with nicotine E-cig/vape details: cartridge/week Quit status (tobacco/nicotine): has tried quititng Number of times tried to quit tobacco: 6 Second hand smoke exposure: No Alcohol intake: current Alcohol intake frequency: holidays/special occasions only Alcohol type: other Substance/Drug Use: current Substance/Drug use frequency: few times a week Female Reproductive History: Spontaneous abortions: No Physical Exam 2 Const: COMMON NORMALS: no acute distress, average body habitus, patient oriented x3, no limitations, healthy appearing, alert and well nourished G ENERAL APPEARANCE: cooperative ORIENTATION/CONSCIOUSNESS: Yes awake, Yes oriented to person, Yes oriented to place and Yes oriented to time HENMT: COMMON NORMALS: external ears normal, EAC's normal and TM's normal bilaterally EXTERNAL EAR: Yes external ears normal, Yes mastoids normal and Yes no periauricular adenopathy EXTERNAL AUDITORY CANAL: EAC's normal T YMPANIC MEMBRANE: TM's normal bilaterally Eye: COMMON NORMALS: Equal, round and reactive pupils present and EOMs intact bilaterally GENERAL EYE: appearance normal, both eyes and all related structures and normal light reflex PUPIL: Yes Equal, round and reactive pupils present DIRECT OPHTHALMOSCOPY: Yes normal light reflex OTHER: no nystagmus Resp: COMMON NORMALS: normal respiratory effort and clear to auscultation bilaterally AUSCULTATION: clear to auscultation bilaterally Cardio: COMMON NORMALS: regular rate and regular rhythm RATE: regular rate RHYTHM: regular rhythm Neuro: PHOEBE COMA SCALE: document GCS findings Phoebe coma scale eye opening: Spontaneous [place] coma scale verbal response: Orientated [place] coma scale motor response: Obey commands [place] coma scale total score: 15 COMMON NORMALS: patient oriented x3, CN's II-XII intact bilaterally, moves all extremities, no focal motor deficits, no sensory deficits noted and gait normal SENSORIUM/ORIENTATION: Yes alert, Yes oriented to person, Yes oriented to place and Yes oriented to time Skin: COMMON NORMALS: no rashes or lesions noted GENERAL SKIN EXAM: no rashes or lesions noted Course 2 Vital Signs: Vital signs: Vital Signs Temperature 98.0 F 09/13/24 09:54 Pulse Rate 76 09/13/24 12:15 Respiratory Rate 18 09/13/24 12:11 Blood Pressure 114/81 09/13/24 12:15 Pulse Oximetry 100 09/13/24 12:11 Oxygen Delivery Me thod Room Air 09/13/24 12:11 MDM - Dizziness Medical Decision Making Based on history and physical examination, I do not have any concern for central etiology for her vertigo/dizziness. Patient states she is asymptomatic in the mornings and will start noticing symptoms around noon. Vitals and orthostatics are normal here. Blood work overall is unremarkable. UA is clear. Tox screen positive for marijuana. She can follow up with PCP and/or OB for further evaluation. Did discuss trial of meclizine to see if this helps. Medical Records I reviewed the patient's medical records. Lab Data I reviewed the patient's lab results. 09/13/24 10:59 09/13/24 10:59 Laboratory Results WBC 11.53 10^3/uL (3.29-11.43) H 09/13/24 10:59 RBC 3.94 10^6/uL (3.85-5.65) 09/13/24 10:59 Hgb 13.10 g/dL (11.27-16.99) 09/13/24 10:59 Hct 39.1 % (36-47) 09/13/24 10:59 MCV 99.2 fl (85-98) H 09/13/24 10:59 MCH 33.2 pg (27-33) H 09/13/24 10:59 MCHC 33.5 g/dL (30-55) 09/13/24 10:59 RDW 13.2 % (12.1-15.1) 09/13/24 10:59 Plt Count 354 10^3/cmm (157-399) 09/13/24 10:59 MPV 9.1 fL (7.4-10.4) 09/13/24 10:59 Neut % (Auto) 70.4 % 09/13/24 10:59 Lymph % (Auto) 21.3 % 09/13/24 10:59 Walsh % (Auto) 6.7 % 09/13/24 10:59 Eos % (Auto) 0.7 % 09/13/24 10:59 Baso % (Auto) 0.3 % 09/13/24 10:59 Neut # (Auto) 8.12 10^3/uL (1.8-7.7) H 09/13/24 10:59 Lymph # (Auto) 2.5 10^3/uL (0.8-4.8) 09/13/24 10:59 Walsh # (Auto) 0.8 10^3/uL (0.2-0.9) 09/13/24 10:59 Eos # (Auto) 0.1 10^3/uL (0.0-0.8) 09/13/24 10:59 Baso # (Auto) 0.0 10^3/uL (0.0-0.1) 09/13/24 10:59 Nucleated RBC % (auto) 0 % 09/13/24 10:59 Nucleated RBCs # 0.0 /100WBC 09/13/24 10:59 Sodium 134 mmol/L (136-145) L 09/13/24 10:59 Potassium 4.0 mmol/L (3.5-5.1) 09/13/24 10:59 Chloride 99 mmol/L (98-107) 09/13/24 10:59 Carbon Dioxide 24 mmol/L (22-29) 09/13/24 10:59 Anion Gap 15.0 (5-19) 09/13/24 10:59 BUN 7 mg/dL (6-20) 09/13/24 10:59 Creatinine 0.4 mg/dL (0.5-0.9) L 09/13/24 10:59 GFR Calculation 177.7 mL/min (90-130) H 09/13/24 10:59 Glucose 87 mg/dL (65-115) 09/13/24 10:59 Calculated Osmolality 275 mOsm/kg (285-295) L 09/13/24 10:59 Calcium 9.6 mg/dL (8.5-10.5) 09/13/24 10:59 Total Bilirubin 0.3 mg/dL (0.15-1.2) 09/13/24 10:59 AST 15 U/L (0-32) 09/13/24 10:59 ALT 10 U/L (0-33) 09/13/24 10:59 Alkaline Phosphatase 59 U/L (35-105) 09/13/24 10:59 Total Protein 7.3 g/dL (6.6-8.7) 09/13/24 10:59 Albumin 4.4 g/dL (3.5-5.2) 09/13/24 10:59 Globulin 2.9 g/dL (1.3-4.6) 09/13/24 10:59 TSH 1.90 uIU/mL (0.27-4.20) 09/13/24 10:59 Urine Color Yellow (Yellow) 09/13/24 12:26 Urine Appearance Clear (CLEAR) 09/13/24 12:26 Urine pH 6.5 (5-7) 09/13/24 12:26 Ur Specific [place] 1.012 (1.005-1.030) 09/13/24 12:26 Urine Protein Negative (Negative) 09/13/24 12:26 Urine Glucose (UA) Negative (Normal) 09/13/24 12:26 Urine Ketones 1+ (Negative) H 09/13/24 12:26 Urine Blood Negative (Negative) 09/13/24 12:26 Urine Nitrate Negative (Negative) 09/13/24 12:26 Urine Bilirubin Negative (Negative) 09/13/24 12:26 Urine Urobilinogen 0.2 mg/dL (Negative) 09/13/24 12:26 Ur Leukocyte Esterase Negative (Negative) 09/13/24 12:26 Urine RBC 0-2 /hpf (0-2) 09/13/24 12:26 Urine WBC 0-5 /hpf (0-5) 09/13/24 12:26 Ur Squamous Epith Cells 0-5 /hpf (0-5) 09/13/24 12:26 Amorphous Sediment Not Reportable 09/13/24 12:26 Urine Bacteria None seen /hpf (NONE) 09/13/24 12:26 Hyaline Casts 0-4 /lpf H 09/13/24 12:26 Urine Opiates Screen Negative ng/mL (Negative) 09/13/24 12:26 Ur Barbiturates Screen Negative ng/mL (Negative) 09/13/24 12:26 Ur Phencyclidine Scrn Negative ng/mL (Negative) 09/13/24 12:26 Ur Amphetamines Screen Negative ng/mL (Negative) 09/13/24 12:26 U Benzodiazepines Scrn Negative ng/mL (Negative) 09/13/24 12:26 Urine Cocaine Screen Negative ng/mL (Negative) 09/13/24 12:26 U Marijuana (THC) Screen Positive ng/mL (Negative) H 09/13/24 12:26 No radiology studies performed this visit Discharge Plan Discharge Patient Disposition: Home Clinical Impression: Dizziness Condition: Stable Prescriptions: No Action Vitamin 27 mg iron- 800 mcg tablet 1 tab PO DAILY ferrous sulfate 325 mg (65 mg iron) Tablet 325 mg PO DAILY Discharge Orders: Discharge ED (Routine); Ordered 09/13/24 Ordered By: Sri Cadet Patient Instructions: Dizziness (ED) Coding Level of Care Code ED [employer] for Bere Baldwin
[2024-09-13 12:15] VITALS: BP 114/81; BP 118/86; BP 118/88; PULSE 75; PULSE 76; PULSE 77
[2024-09-13 13:01] LABS: Amphetamines Screen Urine Negative (Negative); Barbiturates Screen Urine Negative (Negative); Benzodiazepines Screen Urine Negative (Negative); Cocaine Screen Urine Negative (Negative); Opiate Screen Urine Negative (Negative); PCP Screen Urine Negative (Negative); THC Screen Urine Positive (Negative)
[2024-09-13 13:37] LABS: Bilirubin Urine Negative (Negative); Blood Urine Negative (Negative); Glucose Urine UA Negative (Normal); Ketones Urine 1+ (Negative); Leukocyte Esterase Urine Negative (Negative); Nitrate Urine Negative (Negative); Protein Urine Negative (Negative); Specific Gravity, Urine 1.012 (1.005-1.030); Urine Appearance Clear (CLEAR); Urine Color Yellow (Yellow); Urobilinogen Urine 0.2 mg/dL (Negative); pH Urine 6.5 (5-7)
[2024-09-13 13:43] LABS: Add Urine Microscopic? YES; Bacteria Urine None Seen /hpf; Hyaline Casts Urine 0-4 /lpf; RBC Urine 0-2 /hpf (0-2); Squamous Epithelial Cell Urine 0-5 /hpf (0-5); WBC Urine 0-5 /hpf (0-5)
[2024-09-13 13:59] VITALS: BP 118/78; PULSE 96; O2SAT 100
== END 2024-09-13 13:59 | disposition home or self-care (01) ==
PROVIDERS: Family Medicine; Emergency Provider Physician Assistant
DX: R42 Dizziness and giddiness (principal); F17.290 Nicotine dependence, other tobacco product, uncomplicated
CPT/HCPCS: 36415; 80053; 80306; 81001; 84443; 85025; 93005; 99284

== ENCOUNTER 2025-01-11 15:00 | Outpatient (CLI) | payer MEDICAID, SELFPAY ==
[2025-01-11 15:05] VITALS: BMI 31.0
[2025-01-11 15:15] VITALS: BP 130/77; PULSE 110
[2025-01-11 15:30] VITALS: BP 150/88; PULSE 95
[2025-01-11 15:45] VITALS: BP 119/68; PULSE 93
== END 2025-01-11 15:58 | disposition home or self-care (01) ==
LOC: OPOB 15:02 → OBGYN 15:02
PROVIDERS: Visit Provider Family Medicine
DX: O26.899 Other specified pregnancy related conditions, unspecified trimester (principal); Z3A.00 Weeks of gestation of pregnancy not specified; R10.9 Unspecified abdominal pain; R10.2 Pelvic and perineal pain
CPT/HCPCS: 59025; 99211

== ENCOUNTER 2025-02-27 16:56 | Outpatient (CLI) | payer MEDICAID, SELFPAY ==
[2025-02-27 16:59] VITALS: RESP 17; BMI 32.5
[2025-02-27 17:07] VITALS: BP 127/87; PULSE 100
[2025-02-27 17:41] VITALS: BP 121/73; PULSE 85
[2025-02-27 17:42] VITALS: BP 127/87; PULSE 100; RESP 17; O2SAT 98
== END 2025-02-27 17:43 | disposition home or self-care (01) ==
LOC: OPOB 16:57 → OBGYN 16:58
PROVIDERS: Visit Provider Obstetrics & Gynecology
DX: O26.899 Other specified pregnancy related conditions, unspecified trimester (principal); Z3A.00 Weeks of gestation of pregnancy not specified; R10.9 Unspecified abdominal pain; R11.0 Nausea
CPT/HCPCS: 59025; 99211

== ENCOUNTER 2025-03-12 14:24 | Outpatient (CLI) | payer MEDICAID, SELFPAY ==
[2025-03-12] VITALS (9 sets, daily range): BP systolic 120–135; BP diastolic 87–99; PULSE 87–111; RESP 17; O2SAT 98; BMI 33.0
[2025-03-12 15:52] LABS: Basophils % 0.3 %; Eosinophils # 0.1 10^3/uL (0.0-0.8); Eosinophils % 0.7 %; Hematocrit 32.1 % (36-47); Lymphocytes # 1.9 10^3/uL (0.8-4.8); Lymphocytes % 17.9 %; Mean Corpuscular HGB Conc 33.6 g/dL (30-55); Mean Corpuscular Hemoglobin 32.1 pg (27-33); Mean Corpuscular Volume 95.5 fl (85-98); Mean Platelet Volume 10.1 fL (7.4-10.4); Monocytes # 0.9 10^3/uL (0.2-0.9); Monocytes % 8.2 %; Neutrophils # 7.65 10^3/uL (1.8-7.7); Neutrophils % 71.3 %; Nucleated Red Blood Cells % 0 %; Platelet Count 311 10^3/cmm (157-399); Red Blood Count 3.36 10^6/uL (3.85-5.65); Red Cell Distribution Width 14.4 % (12.1-15.1); White Blood Count 10.72 10^3/uL (3.29-11.43)
[2025-03-12 15:54] LABS: Bilirubin Urine Negative (Negative); Blood Urine Negative (Negative); Glucose Urine UA Negative (Normal); Ketones Urine Negative (Negative); Leukocyte Esterase Urine 1+ (Negative); Nitrate Urine Negative (Negative); Protein Urine Negative (Negative); Urine Appearance Clear (CLEAR); Urine Color Yellow (Yellow); Urobilinogen Urine 0.2 mg/dL (Negative)
[2025-03-12 15:56] LABS: Add Urine Microscopic? YES; Bacteria Urine 1+ /hpf; Hyaline Casts Urine 0.81 /lpf; RBC Urine 0-2 /hpf (0-2); WBC Urine 21-50 /hpf (0-5)
[2025-03-12 16:02] LABS: Add Urine Culture? Yes
[2025-03-12 16:17] LABS: Urine Creatinine 35 mg/dL (28-217); Urine Protein Random 6 mg/dL
[2025-03-12 16:18] LABS: Alanine Aminotransferase 20 U/L (0-33); Alkaline Phosphatase 239 U/L (35-105); Anion Gap 16.6 (5-19); Aspartate Amino Transferase 17 U/L (0-32); Blood Urea Nitrogen 7 mg/dL (6-20); Calcium 8.5 mg/dL (8.5-10.5); Carbon Dioxide 18 mmol/L (22-29); Chloride 102 mmol/L (98-107); Creatinine Clr Calc Pharmacy 216.9334; Globulin 1.8 g/dL (1.3-4.6); Glomerular Filtration Rate 177.7 mL/min (90-130); Glucose 72 mg/dL (65-115); Osmolality Calculated 273 mOsm/kg (285-295); Potassium 3.6 mmol/L (3.5-5.1); Sodium 133 mmol/L (136-145); Total Bilirubin 0.2 mg/dL (0.15-1.2); Total Protein 4.8 g/dL (6.6-8.7); Uric Acid 3.8 mg/dL (2.4-5.7)
[2025-03-12 16:20] LABS: UPRO/UCREAT Ratio 0.17 mg/mg CR
== END 2025-03-12 16:39 | disposition home or self-care (01) ==
LOC: OPOB 14:24 → OBGYN 14:24
PROVIDERS: Visit Provider Family Medicine
DX: O16.9 Unspecified maternal hypertension, unspecified trimester (principal); Z3A.00 Weeks of gestation of pregnancy not specified
CPT/HCPCS: 36415; 59025; 80053; 81001; 82570; 84156; 84550; 85025; 87086; 99211

== ENCOUNTER 2025-03-20 12:19 | Outpatient (CLI) | payer MEDICAID, SELFPAY ==
[2025-03-20 12:22] VITALS: BMI 33.7
[2025-03-20 12:34] VITALS: BP 129/79; PULSE 100
[2025-03-20 12:35] VITALS: RESP 16
[2025-03-20 12:51] VITALS: BP 113/81; PULSE 110
[2025-03-20 13:11] VITALS: BP 113/76; PULSE 104
== END 2025-03-20 13:10 | disposition home or self-care (01) ==
LOC: OPOB 12:21 → OBGYN 12:21
PROVIDERS: Visit Provider Obstetrics & Gynecology
DX: O26.899 Other specified pregnancy related conditions, unspecified trimester (principal); Z3A.00 Weeks of gestation of pregnancy not specified; N89.8 Other specified noninflammatory disorders of vagina
CPT/HCPCS: 59025; 99211